=== PATIENT | female | born 1980 | race Caucasian/White ===

== ENCOUNTER 2021-03-05 09:19 | Outpatient (RCR) | payer OTHER, SELFPAY ==
[2021-02-05 11:33] VITALS: BP 114/55; PULSE 75
[2021-02-12 14:00] VITALS: BP 110/55; PULSE 84
[2021-02-19 10:28] VITALS: BP 124/71; PULSE 85
[2021-02-26 14:46] VITALS: BP 123/65; PULSE 87
[2021-03-05 10:02] VITALS: BP 120/70; PULSE 88
== END 2021-03-07 12:26 | disposition home or self-care (01) ==
LOC: ANHOBOP 09:19
PROVIDERS: Visit Provider Student in an Organized Health Care Education/Training Program
DX: O09.513 Supervision of elderly primigravida, third trimester (principal); Z3A.34 34 weeks gestation of pregnancy; Z3A.35 35 weeks gestation of pregnancy; Z3A.36 36 weeks gestation of pregnancy; Z3A.37 37 weeks gestation of pregnancy; Z3A.38 38 weeks gestation of pregnancy
CPT/HCPCS: 59025

== ENCOUNTER 2021-03-06 08:25 | Inpatient (IN) | payer OTHER, SELFPAY ==
[2021-03-06] VITALS (65 sets, daily range): BP systolic 73–119; BP diastolic 37–80; PULSE 52–177; RESP 14–17; TEMP 35.8–36.5; O2SAT 97–100; BMI 34.3
--- NOTE | 2021-03-06 09:50 | PM.IMHP ---
H&P: HPI History of Present Illness Date/Time: 03/06/21 09:50 Chief Complaint: labor prior x3 Narrative: 40 yo who presents in labor. Pt complains of painful regular contractions since 0300. She denies any vaginal bleeding or leakage of fluid. SHe endorses good movement. Her is complicated by prior x3. Pt states that in her last she had a bladder laceration due to dense adhesions. also complicated by asthma, depression/anxiety, tobacco use, and advanced maternal age. Review of Systems Cardiovascular: Cardiovascular: Denies chest pain, Denies leg edema, Denies palpitations, Denies dyspnea and Denies dyspnea on exertion Respiratory: Respiratory: Denies cough, Denies dyspnea and Denies dyspnea on exertion Gastrointestinal: Gastrointestinal: Denies abdominal pain, Denies constipation, Denies diarrhea, Denies nausea and Denies vomiting Genitourinary: Genitourinary: Denies hematuria, Denies urinary frequency, Denies dysuria, Denies pelvic pain, Denies urinary incontinence and Denies vaginal discharge Neurologic: Reports system reviewed and no additional complaints, except as documented Psychiatric: Psychiatric: Reports no additional psychiatric complaints Endocrine: Endocrine: Denies palpitations PMFSH Family History Family History (Updated 03/06/21 @ 08:50 by Mayi Shanks RN) Mother Type 2 diabetes mellitus Hypertension Multiple sclerosis Father Hyperthyroidism Cerebrovascular accident Sibling Hyperthyroidism Mirella's disease Social History Social History Substance use: never Spiritual care concerns: No Meds Home Medications and Allergies Home Medications Medication Instructions Recorded Confirmed Type acetaminophen [Tylenol] 650 mg PO Q4H PRN 03/06/21 03/06/21 History albuterol 90 mcg INHALATION Q4H PRN 03/06/21 03/06/21 History cetirizine [Zyrtec] 10 mg PO DAILY 03/06/21 03/06/21 History omeprazole 40 mg PO DAILY 03/06/21 03/06/21 History venlafaxine [Effexor XR] 75 mg PO DAILY 03/06/21 03/06/21 History Allergies Allergy/AdvReac Type Severity Reaction Status Date / Time latex Allergy Mild Itching Verified 06/21/18 10:59 nickel AdvReac Itching Verified 03/06/21 09:11 Exam Const: General: no acute distress Eyes: EOM: EOMs intact bilaterally Neck: Neck: supple Thyroid: thyroid normal Chest: Breast/axilla inspection: normal inspection of the breasts Breast/axilla palpation: normal palpation of the breasts, normal palpation of the axillae and no axillary lymphadenopathy Resp: Effort & Inspection: normal respiratory effort Auscultation: clear to auscultation bilaterally Cardio: Rate: regular rate Rhythm: regular rhythm GI: Inspection: non-distended and other (Gravid) GI Palp: Yes Soft to palpation, No Tenderness to palpation present (GI) and No Guarding due to palpation present (GI) Auscultation: normal bowel sounds : General: No bladder normal to palpation External Female Exam: normal external appearance OB/external & speculum: No vaginal bleeding Manual OB Exam: effaced Amniotic Fluid: no fluid Skin: General skin exam: normal color and no rashes or lesions noted Neuro: Cognition (Neuro): normal cognition Speech: normal speech Extrem: General: normal to inspection and no edema Psych: Mental Status: mental status grossly normal Affect: normal affect Assessment and Plan Assessment and plan (1) History of section complicating : Code(s): O34.219 - Maternal care for unspecified type scar from previous delivery Status: Acute Assessment and Plan: prior x3 note of dense bladder adhesion to the lower uterin segment pt suffered bladder laceration with last delivery will plan for mid to high hysterotomy (2) Supervision of high risk , unspecified, third trimester: Code(s): O09.93 - Supervision of high risk , u
--- NOTE | 2021-03-06 10:00 | WPDHPUPDATE1 ---
History and Physical Update Update Date/Time: 03/06/21 10:00 History and Physical has been reviewed, including an updated exam of the patient. There are NO changes in the patient's condition. Risks, benefits, and alternatives have been discussed and questions answered. Patient agrees to proceed with procedure.
--- NOTE | 2021-03-06 10:06 | WPDANESEPP ---
Anes - Eval Pre Procedure Procedure: Operation Date: 03/11/21 10:30 Proposed Procedures p Repeat Section with Bilateral Tubal Sterilization - Greg Aguirre MD Date/Time: 03/06/21 10:06 Pre Op Diagnosis: c/s Patient Data Age: 40 Gender: F Height: Weight: Last Vital Signs Pulse 73 03/06/21 10:01 BP 119/64 03/06/21 10:01 Allergies Allergy/AdvReac Type Severity Reaction Status Date / Time latex Allergy Mild Itching Verified 06/21/18 10:59 nickel AdvReac Itching Verified 03/06/21 09:11 Home Medications Medication Instructions Recorded Confirmed Type acetaminophen [Tylenol] 650 mg PO Q4H PRN 03/06/21 03/06/21 History albuterol 90 mcg INHALATION Q4H PRN 03/06/21 03/06/21 History cetirizine [Zyrtec] 10 mg PO DAILY 03/06/21 03/06/21 History omeprazole 40 mg PO DAILY 03/06/21 03/06/21 History venlafaxine [Effexor XR] 75 mg PO DAILY 03/06/21 03/06/21 History Patient hx anesthesia problems: none Family hx anesthesia problems: none [facility] Past Medical History Medical History (Updated 03/06/21 @ 10:07 by Carline Ruiz CRNA) Asthma Family History Family History Mother Type 2 diabetes mellitus Hypertension Multiple sclerosis Father Hyperthyroidism Cerebrovascular accident Sibling Hyperthyroidism Mirella's disease Social History Social History Substance use: never Spiritual care concerns: No Exam Day of Procedure 03/06/21 10:06 Patient weight: normal Heart: regular rate and rhythm Lungs: normal air movement Airway: Mallampati scale
[2021-03-06] MEDS: LACTATED RINGERS 1,000 ML 125 ML IV CONT ×2 (10:29→11:25)
--- NOTE | 2021-03-06 10:30 | LDADM ---
This patient, Jose Pina, was admitted to Labor/Delivery/Recovery 119 on 03/06/21 at 08:25. Plans for surgery/ and pain management were discussed with patient. Patient/family oriented to hospital policies and general routines including ID bracelet, bed and alarms, visiting hours, pain management, procedures, bathroom and other care routines, personal items, smoking policy, room service/diet and guest tray routines, infant security routines, and visiting hours. Patient/Family are encouraged to report perceived risks to care and to ask questions if they do not understand what they are told or what they should do. See OBIX for further documentation.
[2021-03-06 10:32] LABS: Basophils Percent Auto 0.2 % (0.2-1.2); Eosinophils Absolute Auto 0.1 K/mm3 (0-0.3); Eosinophils Percent Auto 0.7 % (0-4.4); Hematocrit 36.9 % (37.0-47.0); Hemoglobin 12.3 g/dL (12.0-15.0); Immature Granulocyte Absolute 0.07 K/mm3 (0.00-0.031); Immature Granulocyte Percent A 0.5 % (0-0.5); Lymphocytes Absolute Auto 1.42 K/mm3 (0.9-3.2); Lymphocytes Percent Auto 10.5 % (18.3-44.2); Mean Corpuscular HGB Conc 33.3 g/dl (32-36); Mean Corpuscular Hemoglobin 30.3 pg (26-34); Mean Corpuscular Volume 90.9 fl (80-100); Mean Platelet Volume 11.1 fl (7.4-10.4); Monocytes Absolute Auto 0.8 K/mm3 (0.1-0.6); Monocytes Percent Auto 5.7 % (2.6-8.5); Neutrophils Absolute Auto 11.1 K/mm3 (1.3-6.7); Neutrophils Percent Auto 82.4 % (45.5-73.1); Platelet Count Result 238 k/mm3 (150-375); Red Blood Count 4.06 M/mm3 (4.2-5.4); Red Cell Distribution Width 12.8 % (11.5-14.5); White Blood Count 13.5 K/mm3 (4.5-10.0)
--- NOTE | 2021-03-06 11:13 | WPDANESEFPP ---
Anes - Eval Final PreProcedure Day of Procedure 03/06/21 11:13 Patient weight: obese Heart: regular rate and rhythm Lungs: clear to auscultation Airway: Mallampati scale class II Neurological: alert and oriented Last oral intake: >/= 8 hours ASA classification: II Emergent: no Anesthetic plan: proceed Anesthesia type and monitoring: regional spinal and standard monitoring Informed Consent: The patient's anesthetic plan and its attendant risks and benefits were discussed with the patient/family/POA. Questions were solicited and answers provided to the satisfaction of the patient/family/POA.
[2021-03-06] MEDS: ceFAZolin 2 GM/D5W 50 ML 2 GM/50 ML BAG IVPB (11:41)
--- NOTE | 2021-03-06 13:32 | W.PM.PROC2 ---
Procedure Note - Detailed Date of Procedure 03/06/21 Pre-op Diagnosis labor prior x3 history of dense adhesions with bladder laceration complicating surgery desires permanent sterilization Post-op Diagnosis same Procedure Performed repeat section Surgeon Greg Aguirre MD Anesthesia spinal Indications prior x3 Findings dense adhesions between the lower uterine segment and the anterior abdominal wall. Dense adhesions between the uterine serosa and bilateral fallopian tubes and ovaries. Description of Procedure The patient was taken to the operating room. A combined spinal epidural anesthesia was placed with adequate pain control. The patient was placed in a supine position with a slight left lateral tilt. A tolbert catheter was placed with return of clear urine. A Bovie grounding pad was placed. Surgical prep was performed and surgical drapes were placed. A surgical time out was performed. A Pfannenstiel skin incision was then made with the scalpel and carried through to the underlying layer of fascia. The fascia was then incised in the midline and the incision was extended laterally with the Bonilla scissors. The superior aspect of the fascia was then grasped with the June clamps, elevated, and the underlying rectus muscles dissected off bluntly and sharply. Attention was then turned to the inferior aspect of this incision. The inferior fascia was noted to be adherent to the rectus muscles and part of the uterine serosa. Gentle sharp dissectoin was attempted. The fascia was dissected away but dense adhesions were still present between the uterine serosa and anterior pelvic wall. The rectus muscles were already in the midline with no peritoneal covering. I placed my hand thought the opening to check for uterine clearance. The lower uterine segment was felt to be completely adherent with no window or opening. The superior portion of the uterus was clear of any adhesions. The fascia was then further dissected superiorly to free up more space to deliver the . A High-transverse uterine incision was made sharply with the scalpel and entry was made into the uterine cavity. The uterine incision was extended laterally bluntly. The bladder blade was removed and the fetus was delivered atraumatically. The nose and mouth were suctioned with a bulb syringe. The umbilical cord was clamped twice and cut. The was handed off to the waiting staff. At the time of the delivery, the had good color, tone and grimace. The infant cried with minimal stimulation. A second segment of umbilical cord was clamped and cut for cord blood gasses. Cord blood was collected for determination of the blood type and for direct Archer. The placenta was delivered spontaneously without difficulty. The placenta appeared grossly normal and complete. The uterus was exteriorized and cleared of all clots and debris. The uterine incision was repaired using 0-Monocryl suture in a running fashion. The hysterotomy was repaired in 3 layers of 0-monocryl to obtain excellent hemostasis and uterine strength. The uterine closure was inspected for hemostasis. Several figuire of eight sutures of 0-vicryl were placed to obtain hemostasis. Hemaderm was then placed over the hysterotomy. The posterior aspect of the uterus and the broad ligaments were inspected and the posterior cul-de-sac cleared of fluid and blood clots. The uterine closure was again inspected and found to be hemostatic. At this time attention was turned to the fallopian tubes to perform the tubal ligation. The fallopian tubes were identified. In an attempt to follow the fallopian tube out to the fimbrae, it was noted that both fallopian tubes were severely adherent to the lateral uterine serosa and ovaries. Attempts were made to sharply dissect the fallopian tube away with Bovie cautery and a scalpel. The adhesions were noted to bleed with minimal manipulation. I roque m
[2021-03-06] MEDS: MORPHINE SULFATE (*CRX) 2 MG/ML INJ IV PUSH ×4 (13:40→15:09)
[2021-03-06] MEDS: OXYTOCIN 30 UNITS/NS 500 ML 30 UNITS/500 ML BAG 125 UNITS IV CONT (13:53)
--- NOTE | 2021-03-06 14:48 | PC.NURSE ---
Patient tolerating ice cubes without complaint of nausea or emesis. Report given to Lucio Gold RN on unit.
[2021-03-06] MEDS: ONDANSETRON INJ 4 MG/2 ML VIAL IV PUSH ×2 (16:18→19:38)
[2021-03-06] MEDS: KETOROLAC 30 MG/ML VIAL (*BKC) IV PUSH (16:21)
[2021-03-06] MEDS: HYDROcodone/acetaminophen (*CRX) 10-325 MG TABLET 1 TAB PO (17:41)
[2021-03-06] MEDS: VENLAFAXINE HCL XR 75 MG CAP.ER.24H PO (17:50)
[2021-03-06] MEDS: DEXTROSE 5%/0.45% SOD CHL 1,000 ML 125 ML IV CONT (18:38)
[2021-03-06] MEDS: diphenhydrAMINE HCl INJ 50 MG/ML VIAL 12.5 MG IV PUSH (19:38)
--- NOTE | 2021-03-06 19:39 | PC.NURSE ---
1526 Pt admitted to room 281 per stretcher from labor and delivery after repeat delivery of viable female at [address] Aguir[address]. Mother is a and is choosing to breast feed infant. FOB has been here today, but not here at this time. Pt oriented to room, staffing and procedures; VSS and assessment WNL.
--- NOTE | 2021-03-06 19:45 | PHAR ---
Home medication identified in pharmacy and returned to OB2 nursing unit. Omeprazole 40mg capsules, Venlafaxine ER 75mg capsules
[2021-03-07] MEDS: HYDROcodone/acetaminophen (*CRX) 10-325 MG TABLET 1 TAB PO ×3 (00:46→11:37)
[2021-03-07] MEDS: KETOROLAC 30 MG/ML VIAL (*BKC) IV PUSH (00:46)
[2021-03-07 02:00] VITALS: BP 102/42; PULSE 78; RESP 14; TEMP 35.8; O2SAT 99
[2021-03-07] MEDS: KCL 20 MEQ/D5/0.45% SOD CHL 1,000 ML 125 ML IV CONT (03:03)
[2021-03-07 05:25] LABS: Basophils Percent Auto 0.1 % (0.2-1.2); Eosinophils Absolute Auto 0.1 K/mm3 (0-0.3); Eosinophils Percent Auto 0.6 % (0-4.4); Hematocrit 26.1 % (37.0-47.0); Hemoglobin 8.7 g/dL (12.0-15.0); Immature Granulocyte Absolute 0.06 K/mm3 (0.00-0.031); Immature Granulocyte Percent A 0.5 % (0-0.5); Lymphocytes Absolute Auto 0.87 K/mm3 (0.9-3.2); Lymphocytes Percent Auto 7.3 % (18.3-44.2); Mean Corpuscular HGB Conc 33.3 g/dl (32-36); Mean Corpuscular Hemoglobin 30.2 pg (26-34); Mean Corpuscular Volume 90.6 fl (80-100); Mean Platelet Volume 10.6 fl (7.4-10.4); Monocytes Absolute Auto 1.1 K/mm3 (0.1-0.6); Monocytes Percent Auto 9.4 % (2.6-8.5); Neutrophils Absolute Auto 9.7 K/mm3 (1.3-6.7); Neutrophils Percent Auto 82.1 % (45.5-73.1); Platelet Count Result 199 k/mm3 (150-375); Red Blood Count 2.88 M/mm3 (4.2-5.4); Red Cell Distribution Width 12.8 % (11.5-14.5); White Blood Count 11.9 K/mm3 (4.5-10.0)
[2021-03-07 06:45] VITALS: BP 98/52; PULSE 72; RESP 13; TEMP 36.3; O2SAT 99
--- NOTE | 2021-03-07 07:13 | PM.OBPNVD ---
OB - PN: Subj Subjective Date/time seen: 03/07/21 07:13 Interval history: Patient doing well this AM. she has ambulated from the bed to the chair. She is tolerating PO. She reports adequate pain control. Her bleeding is normal and she reports normal lochia. She denies fever, chills, N/V. She has not yet passed flatus. Patient comments: no complaints, pain well controlled and tolerating diet feeding status: exclusively breast feeding Narrative: patient doing well this AM. No complaints. Pain is well controlled. She reports minimal bleeding. She is ambulating and voiding without difficulty. She is tolerating PO. She denies N/V, fever, chills. OB - PN: Obj Data Labs CBC & Chem 7: 03/07/21 05:18 Labs: Laboratory Results - last 24 hr 03/06/21 03/06/21 03/07/21 10:05 10:06 05:18 WBC 13.5 H 11.9 H RBC 4.06 L 2.88 L Hgb 12.3 8.7 L D Hct 36.9 L 26.1 L MCV 90.9 90.6 MCH 30.3 30.2 MCHC 33.3 33.3 RDW 12.8 12.8 Plt Count 238 199 MPV 11.1 H 10.6 H Immature Gran % (Auto) 0.5 0.5 Neut % (Auto) 82.4 H 82.1 H Lymph % (Auto) 10.5 L 7.3 L [place] % (Auto) 5.7 9.4 H Eos % (Auto) 0.7 0.6 Baso % (Auto) 0.2 0.1 L Lymph # (Auto) 1.42 0.87 L [place] # (Auto) 0.8 H 1.1 H Eos # (Auto) 0.1 0.1 Baso # (Auto) 0.0 0.0 Abs Immat Gran (auto) 0.07 H 0.06 H Absolute Neuts (auto) 11.1 H 9.7 H Absolute Nucleated RBC 0.0 0.0 Nucleated RBC % 0.0 0.0 Blood Type B Positive Antibody Screen Negative OB - PN A/P Plan day: 1 Plan: routine care Comments: patient doing well H/H 8.02/18, patient asymptomatic, continue iron supplementation, will repeat CBC tomorrow AM continue routine care Time Spent With Patient Time: Total time spent is greater than 50% in coordination of care (as documented) at patient's floor/unit and/or counseling patient: Time with patient: less than 15 minutes Review of Systems Review of Systems: All systems reviewed & are unremarkable except as noted in HPI and below Constitutional: Constitutional: Reports no additional constitutional complaints Cardiovascular: Cardiovascular: Reports no additional cardiovascular complaints Respiratory: Respiratory: Reports no additional respiratory complaints Gastrointestinal: Gastrointestinal: Reports no additional gastrointestinal complaints Genitourinary: Genitourinary: Reports no additional female genitourinary complaints Exam Const: General: comfortable and no acute distress Resp: Effort & Inspection: normal respiratory effort Auscultation: clear to auscultation bilaterally Cardio: Rate: regular rate GI: GI Palp: Yes Soft to palpation and No Tenderness to palpation present (GI) Auscultation: normal bowel sounds Other: fundus firm and below umbilicus. Urinary Catheter: Urinary Catheter: urine clear Psych: Appearance: grossly normal Mental Status: mental status grossly normal Affect: normal affect
[2021-03-07 07:40] VITALS: BP 93/46; PULSE 81; RESP 16; TEMP 36.4; O2SAT 100
[2021-03-07 08:36] LABS: Rapid Plasma Reagin Non-Reactive (NonReactive)
--- NOTE | 2021-03-07 10:45 | PC.NURSE ---
Mother called out for assist with feeding. Mother reports this to be 4th child to breastfeed, last child 7 years old. Mother states has been latching eagerly, just sleepy this feeding. Mother states she was given a nipple shield and does not feel she needs it and prefers not to use shield. is able to freely thrust tongue past gum ridge and flange both lips. Demonstrated stimulation techniques to wake for feeding. awake with feeding cues within a few minutes. Mother attempts infant to breast in cradle with her chin to chest and unable to latch due to positioning. Reviewed feeding cues, frequencies, duration of feedings, feeding elimination flow sheet, and signs of adequate intake. Assisted with infant to breast. Reviewed positioning/alignment in cross cradle, holding breast in ?U? hold and guided asymmetrical latch on. Discussed rational for each. able to latch correctly. Reviewed signs of a correct latch, effective nursing and suck swallow ratio. Infant nursed eagerly with steady draws and occasional swallowing noted with long pausing. would release latch with pausing. Reviewed the difference of effective vs ineffective nursing. Suggested mother stimulate while feeding to increase stimulation, increase intake and to assist with maintaining deep latch. would slip to shallow latch, mother reports tenderness. Demonstrated how to adjust latch more deeply while feeding. Mother reports she can feel change in latch and has no tenderness. Advised to hold breast during entire feeding to assist maintaining latch. Nipple care reviewed of lanolin after feedings, warm compresses as needed.
--- NOTE | 2021-03-07 10:57 | WPDANLDPN2 ---
Anes-Prog Note L&D Date/Time: 03/07/21 10:57 Comfortable throughout: section Neuraxial method: spinal Epidural/Spinal procedure site: clean & non-tender Neuro status: Neuro function grossly intact. Cardiovascular status: normal Respiratory status: normal Airway patency: baseline Mental status: baseline Post-Op hydration status: normal Vital Signs: Last Vital Signs Temp 36.4 C L 03/07/21 07:40 Pulse 81 03/07/21 07:40 Resp 16 03/07/21 07:40 BP 93/46 L 03/07/21 07:40 Pulse Ox 100 03/07/21 07:40 Pain score (VAS): 08/05 I/O: Intake & Output 03/06/21 03/07/21 03/07/21 23:59 07:59 15:59 Intake Total 120 2300 800 Output Total 760 700 800 Balance -640 1600 0 Post-procedural complaints: none Patient feedback: Patient satisfied with anesthetic care.
--- NOTE | 2021-03-07 10:57 | WPDANLDNPN2 ---
Anes-Prog Note L&D-Neuraxial Date/Time: 03/07/21 10:57 Neuraxial medications: intrathecal PF morphine Opiod-related complaints: none Patient feedback: Patient satisfied with post-operative pain management.
[2021-03-07] MEDS: DOCUSATE SODIUM 100 MG CAPSULE PO ×2 (11:37→17:28)
[2021-03-07] MEDS: POLYSACCHARIDE IRON COMPLEX 150 MG CAPSULE PO ×2 (11:37→17:28)
[2021-03-07] MEDS: MULTIVIT/MIN/PREN/FOL AC/IRON TABLET 1 TAB PO (11:37)
[2021-03-07] MEDS: IBUPROFEN 600 MG TABLET PO ×3 (11:38→23:56)
[2021-03-07 12:00] VITALS: BP 117/57; PULSE 94; RESP 16; TEMP 36.8; O2SAT 99
[2021-03-07] MEDS: HYDROcodone/acetaminophen (*CRX) 5-325 MG TABLET 1 TAB PO ×2 (17:28→23:56)
[2021-03-07 19:45] VITALS: BP 104/47; PULSE 82; RESP 18; TEMP 36.2; O2SAT 100
--- NOTE | 2021-03-08 07:40 | PM.OBPNVD ---
OB - PN: Subj Subjective Date/time seen: 03/08/21 07:40 Interval history: Patient doing well this AM. She is ambulating. She is tolerating PO. She reports adequate pain control. Her bleeding is normal and she reports normal lochia. She denies fever, chills, N/V. She is passing flatus. Patient comments: no complaints and pain well controlled; no flatus present OB - PN: Obj Data Labs CBC & Chem 7: 03/07/21 05:18 Labs: Laboratory Results - last 24 hr 03/06/21 10:05 RPR Non-reactive OB - PN A/P Plan day: 1 Plan: routine care Comments: patient doing well this AM H/H stable, asymptomatic pt would like to be d/c tomorrow continue routine care Time Spent With Patient Time: Total time spent is greater than 50% in coordination of care (as documented) at patient's floor/unit and/or counseling patient: Time with patient: less than 15 minutes Review of Systems Constitutional: Constitutional: Reports no additional constitutional complaints Cardiovascular: Cardiovascular: Reports no additional cardiovascular complaints Respiratory: Respiratory: Reports no additional respiratory complaints Gastrointestinal: Gastrointestinal: Reports no additional gastrointestinal complaints Genitourinary: Genitourinary: Reports no additional female genitourinary complaints Exam Const: General: comfortable and no acute distress Resp: Effort & Inspection: normal respiratory effort Auscultation: clear to auscultation bilaterally Cardio: Rate: regular rate GI: GI Palp: Yes Soft to palpation and Yes Tenderness to palpation present (GI) (appropriately tender around incision ) Auscultation: normal bowel sounds Other: fundus firm and below umbilicus Incision C/D/I Urinary Catheter: Urinary Catheter: urine clear Psych: Appearance: grossly normal Mental Status: mental status grossly normal Affect: normal affect
[2021-03-08 08:40] VITALS: BP 103/46; PULSE 76; RESP 16; TEMP 36.4; O2SAT 99
[2021-03-08] MEDS: DOCUSATE SODIUM 100 MG CAPSULE PO ×2 (08:46→16:12)
[2021-03-08] MEDS: MULTIVIT/MIN/PREN/FOL AC/IRON TABLET 1 TAB PO (08:46)
[2021-03-08] MEDS: POLYSACCHARIDE IRON COMPLEX 150 MG CAPSULE PO ×2 (08:46→16:12)
[2021-03-08] MEDS: IBUPROFEN 600 MG TABLET PO ×3 (08:46→23:13)
[2021-03-08] MEDS: HYDROcodone/acetaminophen (*CRX) 5-325 MG TABLET 1 TAB PO ×3 (08:47→23:12)
[2021-03-08 20:03] VITALS: BP 111/54; PULSE 86; RESP 19; TEMP 36.5; O2SAT 99
[2021-03-09 08:00] VITALS: BP 103/55; PULSE 79; RESP 16; TEMP 36.6; O2SAT 98
[2021-03-09] MEDS: IBUPROFEN 600 MG TABLET PO (08:04)
[2021-03-09] MEDS: POLYSACCHARIDE IRON COMPLEX 150 MG CAPSULE PO (08:04)
[2021-03-09] MEDS: DOCUSATE SODIUM 100 MG CAPSULE PO (08:05)
[2021-03-09] MEDS: MULTIVIT/MIN/PREN/FOL AC/IRON TABLET 1 TAB PO (08:05)
[2021-03-09] MEDS: HYDROcodone/acetaminophen (*CRX) 5-325 MG TABLET 1 TAB PO (08:06)
--- NOTE | 2021-03-09 08:13 | PM.OBDSVD ---
DS: Admitting Diagnosis Admitting Diagnosis labor prior section OB - DS: Summary OB Procedures : None OB Procedures Intrapartum: OB Procedures: : None Peripartum Data Delivery Method: Section Procedures: Procedures Operation Date: 03/06/21 11:30 Actual Procedure Side Surgeon p Section Bilateral Greg Aguirre MD complications: none Status at Discharge Functional status at discharge: independent ambulation Overall status at discharge: patient is progressing back to baseline Time Spent with Patient Time attestation: Total time spent providing and/or coordinating discharge services: Time spent: Less than 30 minutes Exam Const: General: comfortable and no acute distress Resp: Effort & Inspection: normal respiratory effort Auscultation: clear to auscultation bilaterally Cardio: Rate: regular rate GI: Inspection: non-distended GI Palp: Yes Soft to palpation, No Firmness to palpation present (GI), Yes Tenderness to palpation present (GI) (mild tenderness over incision ) and No Guarding due to palpation present (GI) Auscultation: normal bowel sounds Psych: Appearance: grossly normal Mental Status: mental status grossly normal Discharge Plan Discharge Discharging Clinician: Greg Aguirre Patient Disposition: Home, Self-Care Activity: as tolerated and pelvic rest Diet: regular Patient Instructions: Antibiotic Form, How to Stop Smoking (DC), Cigarette Smoking and Your Health (GEN), (DC) Stand Alone Forms: General Discharge Information Follow-up/Referrals: Greg Aguirre MD [Physician] - Discharge Medications: New hydrocodone-acetaminophen 5-325 mg tablet 1 tablet PO Q6H PRN (Reason: pain) Qty: 28 RF: 0 ibuprofen 600 mg Tablet 600 mg PO Q6H PRN (Reason: Cramping) Qty: 30 RF: 0 polysaccharide iron complex 150 mg iron Capsule 150 mg PO BIDWM Qty: 60 RF: 0 acetaminophen [Mapap (acetaminophen)] 325 mg Tablet 650 mg PO Q6H PRN (Reason: Mild Pain (1-3)) Qty: 30 RF: 0 Continued venlafaxine [Effexor XR] 75 mg Capsule,Extended Release 24hr 75 mg PO DAILY RF: 0 cetirizine [Zyrtec] 10 mg Tablet 10 mg PO DAILY RF: 0 omeprazole 40 mg Capsule,Delayed Release(Dr/Ec) 40 mg PO DAILY RF: 0 albuterol 90 mcg/actuation Aerosol 90 mcg INHALATION Q4H PRN (Reason: Shortness Of Breath) RF: 0 acetaminophen [Tylenol] 325 mg Capsule 650 mg PO Q4H PRN (Reason: Pain) RF: 0 Date of admission: 03/06/21 08:25 Primary Care Provider: KendrickDane Admitting Provider: Greg Aguirre Attending physician on admission: Greg Aguirre Condition: Stable
[2021-03-11 07:56] VITALS: BP 121/66; PULSE 83; RESP 20; TEMP 37.2; O2SAT 99
== END 2021-03-09 13:13 | disposition home or self-care (01) | DRG 788 ==
LOC: ANHLDR 09:50 → ANHOB2 15:29
PROVIDERS: Admitting Provider Student in an Organized Health Care Education/Training Program; PCP Internal Medicine; Visit Provider Student in an Organized Health Care Education/Training Program
DX: O34.211 Maternal care for low transverse scar from previous cesarean delivery (principal); Z37.0 Single live birth; Z3A.38 38 weeks gestation of pregnancy; O99.824 Streptococcus B carrier state complicating childbirth; O77.0 Labor and delivery complicated by meconium in amniotic fluid; O99.52 Diseases of the respiratory system complicating childbirth; J45.909 Unspecified asthma, uncomplicated; O99.344 Other mental disorders complicating childbirth; F41.8 Other specified anxiety disorders; O99.334 Smoking (tobacco) complicating childbirth; F17.210 Nicotine dependence, cigarettes, uncomplicated; O99.214 Obesity complicating childbirth; E66.9 Obesity, unspecified; N73.6 Female pelvic peritoneal adhesions (postinfective); Z53.8 Procedure and treatment not carried out for other reasons
CPT/HCPCS: 36415; 59025; 85025; 86592; 86850; 86900; 86901; A9270; C1765; J0690; J1200; J1885; J2250; J2270; J2274; J2405; J2590; J3480; J7120

== ENCOUNTER 2022-02-11 18:44 | Emergency (ER) | payer OTHER, SELFPAY ==
--- NOTE | 2022-02-11 18:45 | ED.FEMALEGU ---
HPI - Female Genitourinary General Chief complaint: Urogenital-Female Stated complaint: uti complaint Time Seen by Provider: 02/11/22 18:45 Source: patient Mode of arrival: ambulatory Limitations: no limitations History of Present Illness HPI Narrative: Ms. Pina is a 41-year-old female patient presenting to the clinic today with complaints of possible urinary tract infection x1 day. She reports burning, urgency, lower back pain and cramping. She denies any fever or chills. Related Data Home Medications Medication Instructions Recorded Confirmed albuterol 90 mcg/actuation aerosol 90 mcg inhalation Q4H PRN 03/06/21 02/11/22 inhaler Shortness Of Breath omeprazole 40 mg capsule,delayed 40 mg PO DAILY 03/06/21 02/11/22 release venlafaxine 75 mg capsule,extended 150 mg PO DAILY 03/06/21 02/11/22 release 24 hr (Effexor XR) Allergies Allergy/AdvReac Type Severity Reaction Status Date / Time latex AdvReac Mild Itching Verified 02/11/22 18:46 nickel AdvReac Mild Itching Verified 02/11/22 18:46 Review of Systems Review of Systems: Pertinent positives per HPI. Patient denies any fever, chills, rash, headache, visual changes, dizziness, cough, runny nose, sore throat, shortness of breath, chest pain, palpitations, nausea, vomiting, diarrhea, or constipation PMFSH Past Medical History Medical History Asthma Family History Family History Mother Type 2 diabetes mellitus Hypertension Multiple sclerosis Father Hyperthyroidism Cerebrovascular accident Sibling Hyperthyroidism Mirella's disease Social History Social History Smoking packs per day: 0.5 Smoking cigarettes per day: 10.0 Years smoked: 4 Smoking pack-years: 2.00 Smoking status: Current every day smoker Second hand tobacco smoke exposure: Yes Substance use: never Spiritual care concerns: No Comments At the time of my signature, I reviewed and agree with the nursing past medical, surgical, social, and family history. There is no relevant family history pertinent to the patient complaint. Exam Narrative: General: Well-developed, well nourished, in no apparent distress. Head: Normocephalic, atraumatic. Cardio: Regular rate and rhythm, s1 and s2 normal, no murmur appreciated. Resp: Clear to auscultation bilaterally, no rhonchi, rales, wheezing or rubs. Abdomen: Soft, pliable, bowel sounds present in all quadrants, left mid and lower abdomen discomfort with palpation as well as tenderness over the suprapubic area, no organomegly, positive left CVAT tenderness. Course Course Emergency Course: Portions of this record may have been created with voice recognition software. Level of Care: Express Care Visit Vital Signs Vital signs: Vital signs reviewed MDM - Female Genitourinary MDM Narrative Medical decision making narrative: At the time of visit patient is resting comfortably on the exam table. UA was obtained and positive for 1+ leukocyte, 2+ protein, and blood. We will send urine for culture. I suspect the patient may have left sided pyelonephritis as she has positive left CVAT tenderness and chills. Rx for Bactrim DS sent to pharmacy and supportive measures were discussed and she voiced understanding. Differential Diagnosis Differential diagnosis: Likely urinary tract infection, cystitis and other (Pyelonephritis) Discharge Plan Discharge Clinical Impression: Pyelonephritis Patient Disposition: Home, Self-Care Condition: Stable Instructions: Antibiotic Form, Kidney Infection (ED) Additional Instructions: Bactrim as prescribed Increase fluids and stay well hydrated Wipe front to back. May use wet wipes. Avoid tub baths If sexually active- pee before and after intercourse. Wear cotton panties A
[2022-02-11 18:52] VITALS: BP 140/93; PULSE 102; RESP 16; TEMP 37; O2SAT 100
== END 2022-02-11 19:08 | disposition home or self-care (01) ==
PROVIDERS: Emergency Provider Nurse Practitioner Family; PCP Internal Medicine
DX: N12 Tubulo-interstitial nephritis, not specified as acute or chronic (principal); F17.210 Nicotine dependence, cigarettes, uncomplicated; J45.909 Unspecified asthma, uncomplicated
CPT/HCPCS: 81003; 87077; 87086; 87186; 99213; G0463

== ENCOUNTER 2022-07-21 08:47 | Emergency (ER) | payer OTHER, SELFPAY ==
[2022-07-21 08:54] VITALS: BP 144/77; PULSE 87; RESP 16; TEMP 36.6; O2SAT 98
--- NOTE | 2022-07-21 09:07 | ED.DENTAL ---
HPI - Dental/Oral General Chief complaint: Dental/Oral Stated complaint: broken tooth Time Seen by Provider: 07/21/22 09:22 Source: patient Mode of arrival: ambulatory Limitations: no limitations History of Present Illness HPI Narrative: 41-year-old female presents concern for dental pain. Reports she broke a tooth 3 days ago and it has become more painful with some swelling and the pain is radiating to her jaw and the rest of her mouth. She has been taking ibuprofen relief. She has a dentist appointment later this week MD Complaint: tooth pain Related Data Home Medications Medication Instructions Recorded Confirmed albuterol 90 mcg/actuation aerosol 90 mcg inhalation Q4H PRN 03/06/21 02/11/22 inhaler Shortness Of Breath omeprazole 40 mg capsule,delayed 40 mg PO DAILY 03/06/21 02/11/22 release venlafaxine 75 mg capsule,extended 150 mg PO DAILY 03/06/21 02/11/22 release 24 hr (Effexor XR) Allergies Allergy/AdvReac Type Severity Reaction Status Date / Time latex AdvReac Mild Itching Verified 02/11/22 18:46 nickel AdvReac Mild Itching Verified 02/11/22 18:46 Review of Systems Review of Systems: CONSTITUTIONAL: Denies malaise, chills, sweats, or fever. EYES: Denies visual changes ENT: Denies rhinorrhea, congestion, sinus pain, otalgia or sore throat. Reports left upper dental pain CARDIOVASCULAR: Denies chest pain, palpitations RESPIRATORY: Denies cough or dyspnea. SKIN: Denies rash or itching. MUSCULOSKELETAL: Denies myalgia. NEUROLOGIC: Denies numbness, weakness, or headache. All systems reviewed & are unremarkable except as noted in HPI and below PMFSH Past Medical History Medical History Asthma Family History Family History Mother Type 2 diabetes mellitus Hypertension Multiple sclerosis Father Hyperthyroidism Cerebrovascular accident Sibling Hyperthyroidism Mirella's disease Social History Social History Smoking packs per day: 0.5 Smoking cigarettes per day: 10.0 Years smoked: 4 Smoking pack-years: 2.00 Smoking status: Current every day smoker Second hand tobacco smoke exposure: Yes Substance use: never Spiritual care concerns: No Comments At time of signature, agree with nursing past medical, surgical, social and family history. There is no relevant family history pertinent to the presenting complaint Exam Narrative: GENERAL: Well-appearing, well-nourished, and in no acute distress. HEAD: Normocephalic, atraumatic. EYES: PERRLA, sclera clear ENT: Nares clear, turbinates pink, no rhinorrhea or epistaxis. Mucous membranes moist. TM pearly chowdary with sharp light reflex bilaterally; no tragal tenderness. Oropharynx without erythema or lesions. Tonsils not enlarged and without exudate. Tooth 14. Broken with surrounding erythema and edema NECK: Supple. No lymphadenopathy. CHEST: No respiratory distress. Speaks in full sentences. HEART: Regular rate and rhythm. SKIN: Warm, dry, no visible rash. NEURO: Alert and oriented x3. PSYCH: Normal mood and affect Course Course Emergency Course: Patient is aware of diagnosis, understands and agrees to treatment plan. Anticipatory guidance given. Patient agrees to follow-up as directed and is aware of reasons to seek care at the emergency department. Portions of this record may have been created with voice recognition software Level of Care: Express Care Visit Vital Signs Vital signs: Vital Signs Temperature 98 F 07/21/22 08:54 Pulse Rate 87 07/21/22 08:54 Respiratory Rate 16 07/21/22 08:54 Blood Pressure 144/77 H 07/21/22 08:54 Pulse Oximetry 98 07/21/22 08:54 Temperature 98 F 07/21/22 08:54 Pulse Rate 87 07/21/22 08:54 Respiratory Rate 16 07/21/22 08:54 Blood Pressure 144/77 H
== END 2022-07-21 09:42 | disposition home or self-care (01) ==
PROVIDERS: Emergency Provider Nurse Practitioner; PCP Internal Medicine
DX: K04.7 Periapical abscess without sinus (principal); F17.210 Nicotine dependence, cigarettes, uncomplicated; J45.909 Unspecified asthma, uncomplicated
CPT/HCPCS: 99213; G0463

== ENCOUNTER 2022-10-05 08:38 | Emergency (ER) | payer OTHER, SELFPAY ==
--- NOTE | 2022-10-05 08:40 | ED.GENADULT ---
HPI - General Adult General Chief complaint: Upper Respiratory Infection Stated complaint: sorethroat Time Seen by Provider: 10/05/22 08:40 Source: patient Mode of arrival: ambulatory Limitations: no limitations History of Present Illness HPI narrative: 41-year-old female patient presents to the [facility] with complaints of sore throat, fatigue, congestion that started last night. Patient states her [id number] child at home was diagnosed with strep about 4 5 days ago. Patient states she was running a low-grade fever last night. Patient states she has been taking [id number] Tylenol cold and flu medications for her symptoms. Denies any chest pain, shortness of breath, abdominal pain, nausea, vomiting or diarrhea. Patient also requesting refill on her asthma rescue inhaler due to the fact that she is out at this time. Related Data Home Medications Medication Instructions Recorded Confirmed omeprazole 40 mg capsule,delayed 40 mg PO DAILY 03/06/21 10/05/22 release venlafaxine 75 mg capsule,extended 150 mg PO DAILY 03/06/21 10/05/22 release 24 hr (Effexor XR) Allergies Allergy/AdvReac Type Severity Reaction Status Date / Time amoxicillin [From Augmentin] AdvReac Intermediate Nausea and Verified 10/05/22 08:59 Vomiting clavulanic acid AdvReac Intermediate Nausea and Verified 10/05/22 08:59 [From Augmentin] Vomiting latex AdvReac Mild Itching Verified 10/05/22 08:45 nickel AdvReac Mild Itching Verified 10/05/22 08:45 Review of Systems Review of Systems: CONSTITUTIONAL: Positive fever, denies chills, or sweats. EYES: Denies visual changes, redness, or discharge. ENT: positive rhinorrhea, congestion, sore throat, denies otalgia. CARDIOVASCULAR: Denies chest pain, palpitations, or edema. RESPIRATORY: Denies cough or dyspnea. GASTROINTESTINAL: Denies abdominal pain, nausea, vomiting, or diarrhea. GENITOURINARY: Denies dysuria or hematuria. SKIN: Denies rash or itching. MUSCULOSKELETAL: Denies back pain, joint pain, or myalgia. NEUROLOGIC: Denies headache, numbness, or weakness. PSYCHIATRIC: Denies anxiety or depression. [facility] Past Medical History Medical History Asthma Family History Family History Mother Type 2 diabetes mellitus Hypertension Multiple sclerosis Father Hyperthyroidism Cerebrovascular accident Sibling Hyperthyroidism Mirella's disease Social History Social History Smoking packs per day: 0.5 Smoking cigarettes per day: 10.0 Years smoked: 4 Smoking pack-years: 2.00 Smoking status: Current every day smoker Second hand tobacco smoke exposure: Yes Substance use: never Spiritual care concerns: No Comments At the time of my signature I agree with nursing past medical history, surgical, social, and family history. There is no relevant family history pertinent to the presenting complaint. Exam Narrative: GENERAL: Well-appearing, well-nourished, and in no acute distress. HEAD: Normocephalic, atraumatic. EYES: PERRLA and EOMI. ENT: Nares clear, no rhinorrhea or epistaxis. Mucous membranes moist. posterior pharynx with no erythema, tonsillar enlargement, exudates or lesions present. Bilateral TMs are clear no erythema or foreign bodies the canal. NECK: Supple. No lymphadenopathy CHEST: Clear to auscultation. No respiratory distress. HEART: Regular rate and rhythm. No murmur heard. Normal peripheral pulses. ABDOMEN: Soft, nontender, nondistended, normal active bowel sounds. EXTREMITIES: Normal range of motion. No edema. SKIN: Warm, dry, no rash. NEURO: No focal deficits. Alert and oriented x3. Course Course Level of Care: Express Care Visit Vital Signs Vital signs: Vital Signs Temperature 36.4 C L 10/05/22 08:50 Pulse Rate 100 10/05/22 08:50 Respiratory Rate 16
[2022-10-05 08:50] VITALS: BP 128/60; PULSE 100; RESP 16; TEMP 36.4; O2SAT 98
== END 2022-10-05 09:06 | disposition home or self-care (01) ==
PROVIDERS: Emergency Provider Nurse Practitioner Family; PCP Internal Medicine
DX: J02.9 Acute pharyngitis, unspecified (principal); F17.210 Nicotine dependence, cigarettes, uncomplicated
CPT/HCPCS: 87081; 87880; 99213; G0463